=== PATIENT | male | born 1955 | race Caucasian/White ===

== ENCOUNTER 2021-06-06 15:23 | Inpatient (IN) ==
[2021-06-06] MEDS ORDERED: Dexamethasone IV 4 MG/ML 5 ML VIAL (20 MG) IVPB ONE (17:02)
[2021-06-06] MEDS ORDERED: Dexamethasone IV 10 MG in NS 0.9% 50 ML 50 ML IVPB ONE (17:02)
[2021-06-06] MEDS ORDERED: levETIRAcetam IV 1,500 MG in NS 0.9% 100 ml BAG 100 ML IVPB SCH (18:00)
[2021-06-06 18:58] LABS: ABS Lymphocytes 1.2 10^3/ul (1.0-4.8); ABS Monocytes 0.7 10^3/ul (0-0.8); ABS Neutrophils 7.7 10^3/ul (1.5-7.7); Eosinophil % 0.2 %; Hematocrit 42 % (42-52); Hemoglobin 14.3 g/dL (14.0-18.0); Lymphocyte % 12.3 %; Mean Corpuscular HGB Conc 34 g/dL (31-36); Mean Corpuscular Hemoglobin 29 pg (27-31); Mean Corpuscular Volume 87 fL (80-94); Mean Platelet Volume 7.6 fL (7.4-10.4); Nucleated Red Blood Cells % 0.2; Platelet Count 226 10^3/uL (150-450); Red Blood Count 4.86 10^6 /uL (4.18-5.48); Red Cell Distribution Width 13 % (10-15); White Blood Count 9.6 10^3/uL (3.5-10.8)
[2021-06-06 19:04] LABS: INR 1.15 (0.86-1.15)
[2021-06-06 19:14] LABS: Rapid COVID-19 Molecular Undetected (Undetected)
[2021-06-06 19:18] LABS: Albumin 4.3 g/dL (3.2-5.2); Albumin/Globulin Ratio 1.3 (1-3); Calcium 9.9 mg/dL (8.6-10.3); Globulin 3.4 g/dL (2-4); Potassium 3.6 mmol/L (3.5-5.0); Total Bilirubin 0.4 mg/dL (0.2-1.0); Total Protein 7.7 g/dL (6.4-8.9)
[2021-06-06] MEDS ORDERED: Iohexol 300 (CONTRAST) 10 ML SDV IV ONE (20:59)
[2021-06-06] MEDS ORDERED: Gadoteridol (CONTRAST) 279.3 MG/ML 10 ML IV ONE (21:32)
[2021-06-07] MEDS: Enoxaparin 40 MG/0.4 ML SYR SUBCUT SCH (04:41)
[2021-06-07] MEDS: Polyethylene Glycol 3350 17 GM PACKET PO SCH (07:47)
[2021-06-08] MEDS: Enoxaparin 40 MG/0.4 ML SYR SUBCUT SCH ×2 (03:24→21:23)
[2021-06-08] MEDS: Polyethylene Glycol 3350 17 GM PACKET PO SCH (08:08)
[2021-06-08] MEDS ORDERED: Polyethylene Glycol 3350 17 GM PACKET PO PRN (08:45)
[2021-06-08] MEDS ORDERED: Flu vaccine *QUAD* 2021-22* 0.5 ML SYRINGE IM ONE (09:00)
[2021-06-08] MEDS ORDERED: Pneumococcal Vac 23-Polyvalent IM ONE (09:00)
[2021-06-09 08:28] LABS: Calcium 8.9 mg/dL (8.6-10.3); Potassium 4.3 mmol/L (3.5-5.0)
[2021-06-09 08:52] VITALS: BP 125/63
== END 2021-06-09 10:50 | disposition home or self-care (01) | DRG 58 ==
LOC: ED 15:23 → SUATTDRO 19:58 → EDHOLD 19:58 → MEDTELE 22:24
PROVIDERS: ADMIT Internal Medicine; ATTEND Internal Medicine

== ENCOUNTER 2021-12-21 09:27 | Observation (INO) ==
[2021-12-21] MEDS: Ondansetron ODT 4 mg TAB 4 MG TAB PO PRN (21:07)
[2021-12-22] MEDS: Senna TAB 8.6 mg TAB PO SCH (08:44)
[2021-12-22] MEDS: Cholecalciferol (VIT D3) 1,000 unit TAB PO SCH (08:44)
[2021-12-22] MEDS: Vitamin THERAPEUTIC TAB PO SCH (08:45)
[2021-12-22 11:19] LABS: ABS Lymphocytes 0.5 10^3/ul (1.0-4.8); ABS Monocytes 0.5 10^3/ul (0-0.8); ABS Neutrophils 5.3 10^3/ul (1.5-7.7); Eosinophil % 0.3 %; Hematocrit 42 % (42-52); Hemoglobin 14.2 g/dL (14.0-18.0); Lymphocyte % 8.5 %; Mean Corpuscular HGB Conc 34 g/dL (31-36); Mean Corpuscular Hemoglobin 32 pg (27-31); Mean Corpuscular Volume 93 fL (80-94); Mean Platelet Volume 7.4 fL (7.4-10.4); Platelet Count 111 10^3/uL (150-450); Red Cell Distribution Width 17 % (10-15); White Blood Count 6.4 10^3/uL (3.5-10.8)
[2021-12-22 12:04] LABS: Albumin 4.3 g/dL (3.2-5.2); Albumin/Globulin Ratio 1.8 (1-3); Calcium 9.6 mg/dL (8.6-10.3); Globulin 2.4 g/dL (2-4); Total Bilirubin 0.7 mg/dL (0.2-1.0); Total Protein 6.7 g/dL (6.4-8.9)
[2021-12-22] MEDS ORDERED: Metoprolol Tartrate 5 mg VIAL 5 ml VIAL (1 mg/ml) IV ONE (16:58)
[2021-12-22] MEDS: Ondansetron ODT 4 mg TAB 4 MG TAB PO PRN (21:38)
[2021-12-23 05:43] LABS: ABS Lymphocytes 0.8 10^3/ul (1.0-4.8); ABS Monocytes 0.8 10^3/ul (0-0.8); ABS Neutrophils 5.9 10^3/ul (1.5-7.7); Eosinophil % 0.5 %; Hematocrit 40 % (42-52); Hemoglobin 13.8 g/dL (14.0-18.0); Mean Corpuscular HGB Conc 34 g/dL (31-36); Mean Corpuscular Hemoglobin 32 pg (27-31); Mean Corpuscular Volume 92 fL (80-94); Mean Platelet Volume 7.5 fL (7.4-10.4); Platelet Count 101 10^3/uL (150-450); Red Blood Count 4.33 10^6 /uL (4.18-5.48); Red Cell Distribution Width 17 % (10-15); White Blood Count 7.6 10^3/uL (3.5-10.8)
[2021-12-23 06:13] LABS: Albumin 3.9 g/dL (3.2-5.2); Calcium 9.1 mg/dL (8.6-10.3); Potassium 3.8 mmol/L (3.5-5.0); Total Bilirubin 0.6 mg/dL (0.2-1.0); Total Protein 5.9 g/dL (6.4-8.9)
[2021-12-23] MEDS: Senna TAB 8.6 mg TAB PO SCH (08:39)
[2021-12-23] MEDS: Vitamin THERAPEUTIC TAB PO SCH (08:40)
[2021-12-23] MEDS: Cholecalciferol (VIT D3) 1,000 unit TAB PO SCH (08:40)
[2021-12-23 11:50] VITALS: BP 144/90
== END 2021-12-23 15:08 ==
LOC: ED 09:27 → EDHOLD 09:27 → MEDTELE 16:19
PROVIDERS: ADMIT Internal Medicine Hematology & Oncology; ATTEND Internal Medicine Hematology & Oncology

== ENCOUNTER 2022-02-28 13:15 | Inpatient (IN) ==
[2022-02-28 13:45] LABS: ABS Lymphocytes 0.2 10^3/ul (1.0-4.8); ABS Monocytes 0.1 10^3/ul (0-0.8); ABS Neutrophils 1.5 10^3/ul (1.5-7.7); Eosinophil % 1.5 %; Hematocrit 28 % (42-52); Hemoglobin 9.4 g/dL (14.0-18.0); Lymphocyte % 9.7 %; Mean Corpuscular HGB Conc 33 g/dL (31-36); Mean Corpuscular Hemoglobin 33 pg (27-31); Mean Corpuscular Volume 98 fL (80-94); Mean Platelet Volume 7.4 fL (7.4-10.4); Nucleated Red Blood Cells % 0.7; Platelet Count 36 10^3/uL (150-450); Red Blood Count 2.89 10^6 /uL (4.18-5.48); Red Cell Distribution Width 18 % (10-15); White Blood Count 1.7 10^3/uL (3.5-10.8)
[2022-02-28 14:54] LABS: Albumin/Globulin Ratio 1.3 (1-3); Calcium 7.8 mg/dL (8.6-10.3); Globulin 2.4 g/dL (2-4); Total Protein 5.4 g/dL (6.4-8.9)
[2022-02-28 15:14] LABS: High Sensitivity Troponin 1 Hr 14 pg/mL (<20)
[2022-02-28] MEDS ORDERED: Iohexol 350 (CONTRAST) 500 ML MDV IV ONE (15:24)
[2022-02-28 15:25] LABS: Potassium 3.9 mmol/L (3.5-5.0)
[2022-02-28] MEDS ORDERED: Heparin DRIP 25,000 UNITS BAG 25,000 UNITS/500 ML BAG IV SCH (15:45)
[2022-02-28] MEDS: Heparin 5000 UNITS/ML 1 mL VIAL IV SCH (16:34)
[2022-02-28] MEDS: Heparin DRIP 25,000 UNITS BAG 25,000 UNITS/500 ML BAG IV SCH (16:36)
[2022-02-28] MEDS ORDERED: Ondansetron ODT 4 mg TAB 4 MG TAB PO PRN (17:23)
[2022-02-28 17:40] LABS: eGFR CKD-EPI 93.3 (>60)
[2022-02-28 18:12] LABS: Urine Appearance Clear; Urine Bilirubin Negative (Negative); Urine Blood Negative (Negative); Urine Color Yellow; Urine Glucose Negative (Negative); Urine Ketones Negative (Negative); Urine Nitrite Negative (Negative); Urine Protein 2+(100 mg/dL) (Negative); Urine Specific Gravity 1.046 (1.002-1.030); Urine Urobilinogen Positive (Negative)
[2022-02-28 18:16] LABS: Urine Bacteria Absent (Absent); Urine Red Blood Cell 2+(6-10/hpf) (Absent); Urine Squamous Epithelial Cell Present (Absent); Urine White Blood Cell Trace(0-5/hpf) (Absent)
[2022-02-28 18:27] LABS: Magnesium 1.9 mg/dL (1.9-2.7)
[2022-02-28 18:33] LABS: Phosphorus 3.3 mg/dL (2.5-5.0)
[2022-02-28] MEDS ORDERED: Magnesium Sulfate 2 gm BAG 2 GM/50 ML BAG IVPB ONE (18:53)
[2022-03-01 06:01] LABS: ABS Lymphocytes 0.2 10^3/ul (1.0-4.8); ABS Monocytes 0.1 10^3/ul (0-0.8); ABS Neutrophils 1.6 10^3/ul (1.5-7.7); Hematocrit 26 % (42-52); Hemoglobin 8.8 g/dL (14.0-18.0); Lymphocyte % 11.3 %; Mean Corpuscular HGB Conc 33 g/dL (31-36); Mean Corpuscular Hemoglobin 32 pg (27-31); Mean Corpuscular Volume 97 fL (80-94); Nucleated Red Blood Cells % 0.4; Platelet Count 45 10^3/uL (150-450); Red Blood Count 2.73 10^6 /uL (4.18-5.48); Red Cell Distribution Width 17 % (10-15); White Blood Count 1.9 10^3/uL (3.5-10.8)
[2022-03-01 06:38] LABS: Albumin/Globulin Ratio 1.1 (1-3); Globulin 2.8 g/dL (2-4); Magnesium 2.7 mg/dL (1.9-2.7); Phosphorus 3.5 mg/dL (2.5-5.0); Potassium 3.8 mmol/L (3.5-5.0); Total Bilirubin 1.2 mg/dL (0.2-1.0); Total Protein 5.8 g/dL (6.4-8.9); eGFR CKD-EPI 89.4 (>60)
[2022-03-01] MEDS ORDERED: KCL 20 MEQ/100 ML IVPREMIX 20 MEQ/100 ML BAG IV ONE (07:39)
[2022-03-01] MEDS ORDERED: Perflutren Lipid Microsphere 3 ML VIAL ONE (08:30)
[2022-03-01] MEDS: Cholecalciferol (VIT D3) 1,000 unit TAB PO SCH (09:05)
[2022-03-01] MEDS: Senna TAB 8.6 mg TAB PO SCH (09:06)
[2022-03-01] MEDS: Heparin 5000 UNITS/ML 1 mL VIAL IV SCH (10:30)
[2022-03-01] MEDS ORDERED: Ondansetron 4 mg VIAL 2 MG/ML 2 ml VIAL ONE (15:22)
[2022-03-01] MEDS: Heparin DRIP 25,000 UNITS BAG 25,000 UNITS/500 ML BAG IV SCH (15:26)
[2022-03-01] MEDS: Ondansetron 4 mg VIAL 2 MG/ML 2 ml VIAL IV PRN (15:28)
[2022-03-01] MEDS: Prochlorperazine 5 mg/ml 2 ml VIAL (10 mg) IV PRN (15:42)
[2022-03-01 16:33] LABS: ABS Lymphocytes 0.2 10^3/ul (1.0-4.8); ABS Monocytes 0.1 10^3/ul (0-0.8); Eosinophil % 0.2 %; Hematocrit 28 % (42-52); Hemoglobin 9.3 g/dL (14.0-18.0); Lymphocyte % 8.3 %; Mean Corpuscular HGB Conc 34 g/dL (31-36); Mean Corpuscular Hemoglobin 33 pg (27-31); Mean Corpuscular Volume 97 fL (80-94); Mean Platelet Volume 7.1 fL (7.4-10.4); Nucleated Red Blood Cells % 0.6; Platelet Count 45 10^3/uL (150-450); Red Blood Count 2.85 10^6 /uL (4.18-5.48); Red Cell Distribution Width 17 % (10-15); White Blood Count 2.2 10^3/uL (3.5-10.8)
[2022-03-01] MEDS ORDERED: ZOSYN 3.375 GM x ONE DOSE over 30 miuntes IV (17:00)
[2022-03-01] MEDS ORDERED: Zosyn per Pharmacy NOTE FOLLOW UP SCH (17:00)
[2022-03-01] MEDS: ZOSYN 3.375 GM Q8H per EXTENDED INFUSION IV SCH (21:44)
[2022-03-02] MEDS: Ondansetron 4 mg VIAL 2 MG/ML 2 ml VIAL IV PRN (04:09)
[2022-03-02 04:56] LABS: ABS Lymphocytes 0.2 10^3/ul (1.0-4.8); ABS Monocytes 0.1 10^3/ul (0-0.8); ABS Neutrophils 2.7 10^3/ul (1.5-7.7); Eosinophil % 0.1 %; Hematocrit 26 % (42-52); Hemoglobin 8.5 g/dL (14.0-18.0); Lymphocyte % 5.9 %; Mean Corpuscular HGB Conc 33 g/dL (31-36); Mean Corpuscular Hemoglobin 32 pg (27-31); Mean Corpuscular Volume 96 fL (80-94); Mean Platelet Volume 8.4 fL (7.4-10.4); Nucleated Red Blood Cells % 0.3; Platelet Count 50 10^3/uL (150-450); Red Blood Count 2.68 10^6 /uL (4.18-5.48); Red Cell Distribution Width 17 % (10-15)
[2022-03-02] MEDS: ZOSYN 3.375 GM Q8H per EXTENDED INFUSION IV SCH ×3 (05:11→21:58)
[2022-03-02 05:15] LABS: Magnesium 2.3 mg/dL (1.9-2.7); Phosphorus 3.3 mg/dL (2.5-5.0); Potassium 4.3 mmol/L (3.5-5.0)
[2022-03-02] MEDS: Prochlorperazine 5 mg/ml 2 ml VIAL (10 mg) IV PRN (05:47)
[2022-03-02] MEDS: Senna TAB 8.6 mg TAB PO SCH (08:25)
[2022-03-02] MEDS: Cholecalciferol (VIT D3) 1,000 unit TAB PO SCH (08:46)
[2022-03-02] MEDS: Enoxaparin 80 MG/0.8 ML SYR SUBCUT SCH ×2 (12:39→21:57)
[2022-03-02] MEDS ORDERED: Lactated Ringers 1000 ml BAG 1,000 ML IV ONE (17:13)
[2022-03-03] MEDS: ZOSYN 3.375 GM Q8H per EXTENDED INFUSION IV SCH (05:07)
[2022-03-03 05:41] LABS: ABS Lymphocytes 0.4 10^3/ul (1.0-4.8); ABS Monocytes 0.1 10^3/ul (0-0.8); Eosinophil % 0.5 %; Hematocrit 22 % (42-52); Hemoglobin 7.3 g/dL (14.0-18.0); Lymphocyte % 14.8 %; Mean Corpuscular HGB Conc 34 g/dL (31-36); Mean Corpuscular Hemoglobin 33 pg (27-31); Mean Corpuscular Volume 97 fL (80-94); Mean Platelet Volume 8.9 fL (7.4-10.4); Nucleated Red Blood Cells % 1.5; Platelet Count 50 10^3/uL (150-450); Red Blood Count 2.22 10^6 /uL (4.18-5.48); Red Cell Distribution Width 18 % (10-15); White Blood Count 2.4 10^3/uL (3.5-10.8)
[2022-03-03 06:01] LABS: Calcium 7.6 mg/dL (8.6-10.3); Magnesium 2.2 mg/dL (1.9-2.7); Phosphorus 2.8 mg/dL (2.5-5.0); Potassium 4.3 mmol/L (3.5-5.0)
[2022-03-03] MEDS: Cholecalciferol (VIT D3) 1,000 unit TAB PO SCH (08:07)
[2022-03-03] MEDS: Senna TAB 8.6 mg TAB PO SCH (08:09)
[2022-03-03] MEDS: Enoxaparin 80 MG/0.8 ML SYR SUBCUT SCH (08:09)
[2022-03-04 05:43] LABS: Hematocrit 23 % (42-52); Hemoglobin 7.7 g/dL (14.0-18.0); Mean Corpuscular HGB Conc 33 g/dL (31-36); Mean Corpuscular Hemoglobin 33 pg (27-31); Mean Corpuscular Volume 98 fL (80-94); Mean Platelet Volume 7.9 fL (7.4-10.4); Platelet Count 56 10^3/uL (150-450); Red Blood Count 2.34 10^6 /uL (4.18-5.48); Red Cell Distribution Width 17 % (10-15); White Blood Count 2.6 10^3/uL (3.5-10.8)
[2022-03-04 06:12] LABS: Phosphorus 2.8 mg/dL (2.5-5.0); Potassium 4.3 mmol/L (3.5-5.0)
[2022-03-04 06:54] LABS: RBC Morphology Normal (Normal)
[2022-03-04 06:55] LABS: Polychromasia 1+
[2022-03-04 06:56] LABS: ABS Lymphocytes 0.5 10^3/ul (1.0-4.8); ABS Monocytes 0.1 10^3/ul (0-0.8); ABS Nucleated RBC 0.1 10^3/ul; Eosinophil % 1.5 %; Lymphocyte % 18.4 %; Nucleated Red Blood Cells % 2.9
[2022-03-04] MEDS: Cholecalciferol (VIT D3) 1,000 unit TAB PO SCH (09:30)
[2022-03-04] MEDS: Senna TAB 8.6 mg TAB PO SCH (09:31)
[2022-03-05 07:04] LABS: Hematocrit 25 % (42-52); Hemoglobin 8.4 g/dL (14.0-18.0); Mean Corpuscular HGB Conc 34 g/dL (31-36); Mean Corpuscular Hemoglobin 33 pg (27-31); Mean Corpuscular Volume 100 fL (80-94); Mean Platelet Volume 8.3 fL (7.4-10.4); Platelet Count 55 10^3/uL (150-450); Red Blood Count 2.52 10^6 /uL (4.18-5.48); Red Cell Distribution Width 18 % (10-15); White Blood Count 2.5 10^3/uL (3.5-10.8)
[2022-03-05 07:56] LABS: ABS Eosinophils 0.1 10^3/ul (0-0.6); ABS Lymphocytes 0.4 10^3/ul (1.0-4.8); ABS Monocytes 0.1 10^3/ul (0-0.8); ABS Neutrophils 1.9 10^3/ul (1.5-7.7); ABS Nucleated RBC 0.1 10^3/ul; Eosinophil % 2.5 %; Lymphocyte % 16.3 %; Nucleated Red Blood Cells % 2.1
[2022-03-05] MEDS: Cholecalciferol (VIT D3) 1,000 unit TAB PO SCH (10:37)
[2022-03-05] MEDS: Senna TAB 8.6 mg TAB PO SCH (10:39)
[2022-03-05 11:49] LABS: Calcium 8.4 mg/dL (8.6-10.3); eGFR CKD-EPI 97.1 (>60)
[2022-03-05] MEDS ORDERED: Metoprolol Tartrate 5 mg VIAL 5 ml VIAL (1 mg/ml) IV ONE ×2 (13:48→14:22)
[2022-03-05] MEDS ORDERED: Albuterol HFA INHALER 8 gm MDI INH PRN (14:38)
[2022-03-05 15:44] LABS: Calcium 8.3 mg/dL (8.6-10.3); Potassium 4.1 mmol/L (3.5-5.0)
[2022-03-05 16:30] LABS: High Sensitivity Troponin 1 Hr 13 pg/mL (<20)
[2022-03-05 17:50] LABS: Magnesium 1.9 mg/dL (1.9-2.7)
[2022-03-05] MEDS ORDERED: Magnesium Sulfate 2 gm BAG 2 GM/50 ML BAG IVPB ONE (17:54)
[2022-03-05 18:01] LABS: High Sensitivity Troponin 3 Hr 17 pg/mL (<20)
[2022-03-06] MEDS ORDERED: Metoprolol Tartrate 5 mg VIAL 5 ml VIAL (1 mg/ml) IV ONE ×2 (02:20→09:25)
[2022-03-06] MEDS ORDERED: Haloperidol 5 mg/ml SDV IV/IM 5 MG/ML AMP IV SLOW PU ONE (02:32)
[2022-03-06] MEDS ORDERED: Digoxin IV 0.5 MG/2 ML AMP (0.25 MG/ML) IV SLOW PU ONE (02:57)
[2022-03-06 06:52] LABS: Hematocrit 25 % (42-52); Hemoglobin 8.5 g/dL (14.0-18.0); Mean Corpuscular HGB Conc 34 g/dL (31-36); Mean Corpuscular Hemoglobin 33 pg (27-31); Mean Corpuscular Volume 98 fL (80-94); Mean Platelet Volume 7.8 fL (7.4-10.4); Platelet Count 63 10^3/uL (150-450); Red Blood Count 2.56 10^6 /uL (4.18-5.48); Red Cell Distribution Width 18 % (10-15); White Blood Count 2.5 10^3/uL (3.5-10.8)
[2022-03-06 07:03] LABS: Calcium 8.3 mg/dL (8.6-10.3); Magnesium 2.1 mg/dL (1.9-2.7); Potassium 4.6 mmol/L (3.5-5.0); eGFR CKD-EPI 97.5 (>60)
[2022-03-06 08:30] LABS: ABS Lymphocytes 0.3 10^3/ul (1.0-4.8); ABS Monocytes 0.2 10^3/ul (0-0.8); Eosinophil % 0.4 %; Lymphocyte % 12.1 %; Nucleated Red Blood Cells % 1.1
[2022-03-06] MEDS: Cholecalciferol (VIT D3) 1,000 unit TAB PO SCH (08:31)
[2022-03-06] MEDS: Senna TAB 8.6 mg TAB PO SCH (08:33)
[2022-03-06] MEDS: Enoxaparin 100 MG/ML SYR SUBCUT SCH (20:19)
[2022-03-07] MEDS ORDERED: Metoprolol Tartrate 5 mg VIAL 5 ml VIAL (1 mg/ml) IV ONE (00:44)
[2022-03-07] MEDS ORDERED: Senna TAB 8.6 mg TAB PO PRN (07:00)
[2022-03-07 07:28] LABS: Calcium 8.1 mg/dL (8.6-10.3); Magnesium 1.8 mg/dL (1.9-2.7); Potassium 4.3 mmol/L (3.5-5.0); eGFR CKD-EPI 97.1 (>60)
[2022-03-07] MEDS: Enoxaparin 100 MG/ML SYR SUBCUT SCH ×2 (08:39→21:06)
[2022-03-07] MEDS: Cholecalciferol (VIT D3) 1,000 unit TAB PO SCH (08:56)
[2022-03-07] MEDS ORDERED: Magnesium Sulfate IV 3 GM in NS 0.9% 100 ml BAG 100 ML IVPB ONE (10:00)
[2022-03-08] MEDS: Cholecalciferol (VIT D3) 1,000 unit TAB PO SCH (08:50)
[2022-03-08] MEDS: Enoxaparin 100 MG/ML SYR SUBCUT SCH ×2 (08:52→21:28)
[2022-03-08 12:25] LABS: Calcium 8.3 mg/dL (8.6-10.3); Magnesium 2.4 mg/dL (1.9-2.7); Potassium 4.4 mmol/L (3.5-5.0); eGFR CKD-EPI 71.6 (>60)
[2022-03-09] MEDS: Cholecalciferol (VIT D3) 1,000 unit TAB PO SCH (10:17)
[2022-03-09] MEDS: Enoxaparin 100 MG/ML SYR SUBCUT SCH ×2 (10:20→21:35)
[2022-03-10] MEDS: Cholecalciferol (VIT D3) 1,000 unit TAB PO SCH (10:38)
[2022-03-10] MEDS: Enoxaparin 100 MG/ML SYR SUBCUT SCH ×3 (10:39→22:22)
[2022-03-10] MEDS ORDERED: Enoxaparin 100 MG/ML SYR SUBCUT ONE (13:22)
[2022-03-10 13:38] LABS: Hematocrit 31 % (42-52); Hemoglobin 10.2 g/dL (14.0-18.0); Mean Corpuscular HGB Conc 33 g/dL (31-36); Mean Corpuscular Hemoglobin 33 pg (27-31); Mean Corpuscular Volume 100 fL (80-94); Mean Platelet Volume 8.5 fL (7.4-10.4); Platelet Count 98 10^3/uL (150-450); Red Blood Count 3.09 10^6 /uL (4.18-5.48); Red Cell Distribution Width 20 % (10-15); White Blood Count 4.9 10^3/uL (3.5-10.8)
[2022-03-10 14:47] LABS: ABS Lymphocytes 0.5 10^3/ul (1.0-4.8); ABS Monocytes 0.2 10^3/ul (0-0.8); ABS Neutrophils 4.2 10^3/ul (1.5-7.7); Eosinophil % 0.5 %; Lymphocyte % 9.6 %; Nucleated Red Blood Cells % 0.7
[2022-03-11 09:14] LABS: Activated Partial Thrombo Time 42.1 seconds (26.0-38.0); INR 1.08 (0.89-1.11)
[2022-03-11] MEDS: Enoxaparin 100 MG/ML SYR SUBCUT SCH (10:06)
[2022-03-11] MEDS: Cholecalciferol (VIT D3) 1,000 unit TAB PO SCH (10:07)
[2022-03-12 06:50] LABS: Hematocrit 28 % (42-52); Hemoglobin 9.4 g/dL (14.0-18.0); Mean Corpuscular HGB Conc 33 g/dL (31-36); Mean Corpuscular Hemoglobin 33 pg (27-31); Mean Corpuscular Volume 99 fL (80-94); Mean Platelet Volume 8.1 fL (7.4-10.4); Platelet Count 95 10^3/uL (150-450); Red Blood Count 2.88 10^6 /uL (4.18-5.48); Red Cell Distribution Width 20 % (10-15); White Blood Count 5.4 10^3/uL (3.5-10.8)
[2022-03-12 07:17] LABS: Calcium 8.2 mg/dL (8.6-10.3); Magnesium 1.8 mg/dL (1.9-2.7); Potassium 4.4 mmol/L (3.5-5.0); eGFR CKD-EPI 96.4 (>60)
[2022-03-12] MEDS ORDERED: Magnesium Sulfate 2 gm BAG 2 GM/50 ML BAG IVPB ONE (07:48)
[2022-03-12 07:57] VITALS: BP 128/63
[2022-03-12] MEDS: Cholecalciferol (VIT D3) 1,000 unit TAB PO SCH (08:13)
[2022-03-12 08:41] LABS: ABS Lymphocytes 0.6 10^3/ul (1.0-4.8); ABS Monocytes 0.4 10^3/ul (0-0.8); ABS Neutrophils 4.4 10^3/ul (1.5-7.7); ABS Nucleated RBC 0.1 10^3/ul; Anisocytosis 1+; Eosinophil % 0.1 %; Lymphocyte % 11.8 %; Polychromasia 1+
[2022-03-12] MEDS ORDERED: Enoxaparin 80 MG/0.8 ML SYR SUBCUT SCH (09:00)
== END 2022-03-12 10:25 | DRG 175 ==
LOC: ED 13:15 → SUATTDRO 17:02 → EDHOLD 17:02 → ICU 19:46 → MED 03-04 21:21 → MEDTELE 03-05 17:41
PROVIDERS: ADMIT Internal Medicine Critical Care Medicine; ATTEND Internal Medicine

== ENCOUNTER 2022-03-12 08:33 | Inpatient (IN) ==
[2022-03-12] MEDS ORDERED: Senna TAB 8.6 mg TAB PO PRN (09:36)
[2022-03-12] MEDS ORDERED: Magnesium Hydroxide LIQ 30 ML UDC PO PRN (09:36)
[2022-03-12] MEDS ORDERED: Dextrose 50% Syringe 50 ml 25 GM/50 ML SYRINGE IV PUSH PRN (10:30)
[2022-03-12] MEDS: Enoxaparin 80 MG/0.8 ML SYR SUBCUT SCH (21:02)
[2022-03-13 06:18] LABS: Hematocrit 31 % (42-52); Hemoglobin 10.2 g/dL (14.0-18.0); Mean Corpuscular HGB Conc 33 g/dL (31-36); Mean Corpuscular Hemoglobin 33 pg (27-31); Mean Corpuscular Volume 100 fL (80-94); Mean Platelet Volume 7.7 fL (7.4-10.4); Platelet Count 107 10^3/uL (150-450); Red Blood Count 3.06 10^6 /uL (4.18-5.48); Red Cell Distribution Width 21 % (10-15); White Blood Count 5.6 10^3/uL (3.5-10.8)
[2022-03-13 06:28] LABS: ABS Lymphocytes 0.7 10^3/ul (1.0-4.8); ABS Monocytes 0.5 10^3/ul (0-0.8); ABS Neutrophils 4.4 10^3/ul (1.5-7.7); ABS Nucleated RBC 0.1 10^3/ul; Eosinophil % 0.1 %; Lymphocyte % 12.9 %; Nucleated Red Blood Cells % 1.6
[2022-03-13 06:57] LABS: Albumin 3.2 g/dL (3.2-5.2); Albumin/Globulin Ratio 1.5 (1-3); Calcium 8.2 mg/dL (8.6-10.3); Globulin 2.1 g/dL (2-4); Magnesium 2.1 mg/dL (1.9-2.7); Potassium 4.4 mmol/L (3.5-5.0); Total Bilirubin 0.5 mg/dL (0.2-1.0); Total Protein 5.3 g/dL (6.4-8.9); eGFR CKD-EPI 93.4 (>60)
[2022-03-13] MEDS: Enoxaparin 80 MG/0.8 ML SYR SUBCUT SCH ×2 (09:01→20:51)
[2022-03-13] MEDS: Cholecalciferol (VIT D3) 1,000 unit TAB PO SCH (09:01)
[2022-03-14] MEDS: Cholecalciferol (VIT D3) 1,000 unit TAB PO SCH (08:09)
[2022-03-14] MEDS: Enoxaparin 80 MG/0.8 ML SYR SUBCUT SCH ×2 (08:14→21:57)
[2022-03-15] MEDS: Enoxaparin 80 MG/0.8 ML SYR SUBCUT SCH ×2 (09:41→22:02)
[2022-03-15] MEDS: Cholecalciferol (VIT D3) 1,000 unit TAB PO SCH (09:44)
[2022-03-16] MEDS: Cholecalciferol (VIT D3) 1,000 unit TAB PO SCH (09:20)
[2022-03-16] MEDS: Enoxaparin 80 MG/0.8 ML SYR SUBCUT SCH ×2 (11:13→20:21)
[2022-03-16] MEDS ORDERED: Sodium Phosphate ADULT ENEMA 133 ML BTL PR PRN (14:17)
[2022-03-16] MEDS: Senna TAB 8.6 mg TAB PO SCH (20:21)
[2022-03-17] MEDS: Cholecalciferol (VIT D3) 1,000 unit TAB PO SCH (09:00)
[2022-03-17] MEDS: Enoxaparin 80 MG/0.8 ML SYR SUBCUT SCH ×2 (09:01→20:39)
[2022-03-17] MEDS: Senna TAB 8.6 mg TAB PO SCH (20:40)
[2022-03-18] MEDS: Enoxaparin 80 MG/0.8 ML SYR SUBCUT SCH ×2 (08:50→20:25)
[2022-03-18] MEDS: Cholecalciferol (VIT D3) 1,000 unit TAB PO SCH (08:52)
[2022-03-18] MEDS: Senna TAB 8.6 mg TAB PO SCH (20:25)
[2022-03-19] MEDS: Cholecalciferol (VIT D3) 1,000 unit TAB PO SCH (09:53)
[2022-03-19] MEDS: Enoxaparin 80 MG/0.8 ML SYR SUBCUT SCH ×2 (09:55→20:12)
[2022-03-19] MEDS: Senna TAB 8.6 mg TAB PO SCH (20:13)
[2022-03-20 06:32] LABS: Hematocrit 32 % (42-52); Hemoglobin 10.3 g/dL (14.0-18.0); Mean Corpuscular HGB Conc 33 g/dL (31-36); Mean Corpuscular Hemoglobin 33 pg (27-31); Mean Corpuscular Volume 103 fL (80-94); Mean Platelet Volume 7.8 fL (7.4-10.4); Platelet Count 113 10^3/uL (150-450); Red Blood Count 3.09 10^6 /uL (4.18-5.48); Red Cell Distribution Width 21 % (10-15); White Blood Count 4.2 10^3/uL (3.5-10.8)
[2022-03-20 07:08] LABS: ABS Lymphocytes 0.5 10^3/ul (1.0-4.8); ABS Monocytes 0.4 10^3/ul (0-0.8); ABS Neutrophils 3.3 10^3/ul (1.5-7.7); Eosinophil % 0.3 %; Lymphocyte % 12.1 %; Nucleated Red Blood Cells % 0.4
[2022-03-20 07:30] LABS: Albumin 3.1 g/dL (3.2-5.2); Albumin/Globulin Ratio 1.6 (1-3); Calcium 8.1 mg/dL (8.6-10.3); Magnesium 1.8 mg/dL (1.9-2.7); Potassium 4.1 mmol/L (3.5-5.0); Total Bilirubin 0.4 mg/dL (0.2-1.0); Total Protein 5.1 g/dL (6.4-8.9); eGFR CKD-EPI 93.7 (>60)
[2022-03-20] MEDS: Cholecalciferol (VIT D3) 1,000 unit TAB PO SCH (07:32)
[2022-03-20] MEDS: Enoxaparin 80 MG/0.8 ML SYR SUBCUT SCH ×2 (07:35→20:47)
[2022-03-20] MEDS: Senna TAB 8.6 mg TAB PO SCH (20:46)
[2022-03-21] MEDS: Cholecalciferol (VIT D3) 1,000 unit TAB PO SCH (08:45)
[2022-03-21] MEDS: Enoxaparin 80 MG/0.8 ML SYR SUBCUT SCH ×2 (08:46→21:13)
[2022-03-21] MEDS: Senna TAB 8.6 mg TAB PO SCH (21:20)
[2022-03-22] MEDS: Cholecalciferol (VIT D3) 1,000 unit TAB PO SCH (07:27)
[2022-03-22] MEDS: Enoxaparin 80 MG/0.8 ML SYR SUBCUT SCH (07:28)
[2022-03-22] MEDS: Senna TAB 8.6 mg TAB PO SCH (20:32)
[2022-03-23 06:06] VITALS: BP 154/81
[2022-03-23] MEDS: Cholecalciferol (VIT D3) 1,000 unit TAB PO SCH (08:05)
== END 2022-03-23 11:30 | disposition home health service (06) | DRG 175 ==
LOC: PMRU 10:49
PROVIDERS: ADMIT Physical Medicine & Rehabilitation; ATTEND Physical Medicine & Rehabilitation